=== PATIENT | female | born 1960 ===

== ENCOUNTER → 2023-02-20 14:51 | Outpatient (CLI) | payer SELFPAY ==
--- NOTE | ~2023-02-20 | MR_ITS ---
EXAMINATION: MR brain IAC wo/w con DATE: 02/20/2023 15:51 INDICATION: Bilateral sensorineural hearing loss. TECHNIQUE: Magnetic resonance imaging (MRI) of the brain, brainstem, and internal auditory canals was performed without and with 15 mL MultiHance intravenous contrast. COMPARISON: None. FINDINGS: There are a few foci of increased T2-weighted signal intensity in the cerebral white matter , which is normal for the patient's age. There is no intracranial hemorrhage or acute infarct. There is an 11 mm enhancing mass anterior to right temporal lobe. The ventricles are normal in size. The or bits are normal. The paranasal sinuses are clear. The internal auditory canals and inner and middle e ars are normal. The mastoid air cells are normal. IMPRESSION: 1. 11 mm enhancing mass anterior to the right temporal lobe. The differential diagnosis includes meni ngioma, aneurysm, and varix. Head CTA is recommended. Reviewed, dictated and finalized at location A. IMPRESSION: 1. 11 mm enhancing mass anterior to the right temporal lobe. The differential d iagnosis includes meningioma, aneurysm, and varix. Head CTA is recommended.
== END ==
PROVIDERS: PCP Nurse Practitioner Family; Visit Provider Otolaryngology
DX: H90.3 Sensorineural hearing loss, bilateral (principal)
CPT/HCPCS: 70553; A9577

== ENCOUNTER → 2023-03-08 15:14 | Outpatient (CLI) | payer SELFPAY ==
--- NOTE | ~2023-03-08 | CT_ITS ---
CT ANGIOGRAM HEAD History: Temporal lobe mass. Technique: Axial noncontrast imaging of the brain was performed. Serial spiral axial images through t lynn head were then obtained during arterial phase IV injection of 100 cc of Omnipaque 350. 3-D postpro cessing and MIP images were then reconstructed on the remote workstation. Dose reduction technique wa s used on this scan by utilizing automated exposure control and iterative reconstruction technique. Alex bailey dose-length product (DLP) was 1159.21 mGy-cm. COMPARISON: MRI dated 02/20/2023 Findings: Axial noncontrast imaging of the brain demonstrates a probable small extra-axial mass just anterior to the right temporal lobe, which corresponds with prior MR findings. Aguayo-white differentia tion is preserved. Distal vertebral arteries, basilar artery, and posterior cerebral arteries are patent. Distal interna l carotid arteries, middle cerebral arteries, and anterior cerebral arteries are patent. No large ves lobo occlusion. No stenosis or aneurysm identified. Impression: Small extra-axial mass anterior to the right temporal lobe, most consistent with small meningioma. No evidence for aneurysm or other vascular abnormality. Reviewed, dictated and finalized at location . Impression: Small extra-axial mass anterior to the right temporal lobe, most consistent wit h small meningioma. No evidence for aneurysm or other vascular abnormality.
== END ==
PROVIDERS: PCP Nurse Practitioner Family; Visit Provider Otolaryngology
DX: G93.89 Other specified disorders of brain (principal)
CPT/HCPCS: 70496; Q9967